=== PATIENT | male | born 1975 | race Caucasian/White ===

== ENCOUNTER 2021-12-07 01:26 | Inpatient (IN) | payer MEDICAID ==
[~2021-12-07] VITALS: Ht 165.1 cm; Wt 81.6 kg
[2021-12-07] MEDS ORDERED: MORPHINE SULFATE 4 MG/ML CPJ (NOT FOR IM USE) IV STA (02:17)
[2021-12-07] MEDS ORDERED: ONDANSETRON HCL 4MG/2ML INJ IV STA (02:17)
[2021-12-07] MEDS ORDERED: NITROGLYCERIN 0.4MG TABLET SL SL PRN ×2 (02:30→09:45)
[2021-12-07 02:48] LABS: BASOPHILS % 0.7 % (0.0-2.0); EOSINOPHILS % 5.1 % (0.0-5.0); LYMPHOCYTES % 23.7 % (20.0-50.0); MEAN CORPUSCULAR HEMOGLOBIN 28.4 pg (28.0-32.0); MEAN PLATELET VOLUME 8.4 fl (7.4-10.4); NEUTROPHILS % 57.5 % (40.0-76.0); PLATELET 383 x1000/uL (130-400); RED CELL DISTRIBUTION WIDTH 14.4 % (11.6-14.6)
[2021-12-07 03:06] LABS: CHLORIDE 106 mEq/L (98-107)
[2021-12-07 08:25] VITALS: BP 138/45
[2021-12-07] MEDS ORDERED: CLONIDINE 0.1MG TABLET PO PRN (09:45)
[2021-12-07] MEDS ORDERED: NA PHOS,M-B/NA PHOS,DI-BA ENEMA 118ML PR PRN (09:45)
[2021-12-07] MEDS ORDERED: IPRATROPIUM/ALBUTEROL 0.5-3(2.5)MG/3ML NEB NEB PRN (09:45)
[2021-12-07] MEDS ORDERED: ACETAMINOPHEN 325MG TABLET PO PRN ×2 (09:45)
[2021-12-07] MEDS ORDERED: ZOLPIDEM TARTRATE 5MG TABLET PO PRN (09:45)
[2021-12-07] MEDS ORDERED: KETOROLAC 15MG/ML VIAL IV PRN (09:45)
[2021-12-07] MEDS ORDERED: ONDANSETRON HCL 4MG/2ML INJ IV PRN (09:45)
[2021-12-07] MEDS ORDERED: GUAIFENESIN 200MG/10ML SUGAR FREE UDC PO PRN (09:45)
[2021-12-07] MEDS ORDERED: MAGNESIUM/ALUMINUM HYDROXIDE/SIMETHICONE 30ML UDC PO PRN (09:45)
[2021-12-07] MEDS ORDERED: DOCUSATE SODIUM 100MG CAPSULE PO PRN (09:45)
[2021-12-07] MEDS ORDERED: ENOXAPARIN 40MG/0.4ML SYR SUBCUT SCH (10:30)
[2021-12-07] MEDS ORDERED: METOPROLOL TARTRATE 25MG TABLET PO SCH (11:00)
[2021-12-07] MEDS ORDERED: ASPIRIN 325MG EC TABLET PO SCH (11:00)
[2021-12-07 12:00] VITALS: BP 135/49
[2021-12-07 14:32] VITALS: BP 138/45
[2021-12-07] MEDS ORDERED: FAMOTIDINE 20MG TABLET PO SCH (21:00)
== END 2021-12-07 14:14 | disposition left against medical advice (07) | DRG 203 ==
LOC: ER 01:26 → 8WST 05:22 → ENRESERV 07:28 → ER 08:19 → 8WST 09:12
PROVIDERS: ADMIT Internal Medicine; ATTEND Internal Medicine
DX: M94.0 Chondrocostal junction syndrome [Tietze] (principal); E44.1 Mild protein-calorie malnutrition; I24.9 Acute ischemic heart disease, unspecified; I50.30 Unspecified diastolic (congestive) heart failure; I11.0 Hypertensive heart disease with heart failure; E78.00 Pure hypercholesterolemia, unspecified; I25.10 Atherosclerotic heart disease of native coronary artery without angina pectoris; J45.909 Unspecified asthma, uncomplicated; Z95.5 Presence of coronary angioplasty implant and graft; Z68.30 Body mass index [BMI] 30.0-30.9, adult
CPT/HCPCS: 36415; 71045; 80053; 83880; 84484; 85025; 93005; 93306; 99285; J1650; J1885; J2270; J2405